=== PATIENT | male | born 1945 | race American Indian/Alaskan Native ===

== ENCOUNTER 2020-01-22 08:36 | Outpatient (CLI) | payer MEDICARE ==
--- NOTE | 2020-01-22 10:39 | Cat Scan Report ---
CT abdomen pelvis wo con INDICATION: MAIN: PROSTATE CANCER BONE SCAN. TECHNIQUE: All CT scans at this location are performed using CT dose reduction for ALARA by means of automated e xposure control. COMPARISON: None available. FINDINGS: Lung bases are clear of acute disease. Heart size is upper limits of normal. Cholecystectomy. Liver, spleen, pancreas, kidneys and adrenals are negative. Abdominal aorta is maryellen l in size. No adenopathy. Pelvis Prostate is normal in size. Urinary bladder is mostly collapsed but appears unremarkable. Appendix is normal. Lucent lesions in the left hip greater trochanter and right superior acetabulum are corticated and pr obably benign. Tiny sclerotic density in the L2 vertebral body is slightly more worrisome and could p ossibly represent very early metastasis. IMPRESSION: 1. No significant soft tissue abnormalities. 2. Lucent lesions with sclerotic margins in the left greater trochanter and right superior acetabulum are most likely benign. Small sclerotic focus in the L2 vertebral body is slightly more worrisome. A ll 3 of these lesions could well be "hot" on bone scan. Suggest correlation and follow-up. Signer Name: Raji De La Rosa MD Signed: 01/22/2020 10:34 AM Workstation Name: [id number]
--- NOTE | 2020-01-22 13:08 | Nuclear Medicine Report ---
NUCLEAR MEDICINE BONE SCAN, WHOLE BODY INDICATION / CLINICAL INFORMATION: PROSTATE CANCER. Staging after recent diagnosis TECHNIQUE: 26 mCi of Tc-99m MDP were injected IV. Images were obtained of the whole body. COMPARISON: CT scan of the abdomen and pelvis from the same day FINDINGS: ARTICULAR STRUCTURES: Mild, relatively symmetric, periarticular activity which is likely degenerative . Photopenic regions at the knees corresponding to locations of arthroplasty hardware, and there is s ymmetric, mild uptake in the distal femora and proximal tibiae that is likely reactive. SKELETAL LESIONS: No concerning focal skeletal lesion. There is no scintigraphic correlate for the ti ny sclerotic lesion in the L2 vertebral body. SOFT TISSUES: Normal. KIDNEYS: Normal. ADDITIONAL FINDINGS: None. IMPRESSION: 1. No scintigraphic evidence of active skeletal metastasis. Signer Name: Luis Eduardo Cameron MD Signed: 01/22/2020 1:04 PM Workstation Name: [id number]
== END 2020-01-22 08:37 | disposition home or self-care (01) ==
LOC: NM 08:36
PROVIDERS: ATTEND Urology
DX: C61 Malignant neoplasm of prostate (principal); M25.852 Other specified joint disorders, left hip; M25.851 Other specified joint disorders, right hip; Z90.49 Acquired absence of other specified parts of digestive tract
CPT/HCPCS: 74176; 78306; A9503